=== PATIENT | male | born 1955 | race Caucasian/White ===

== ENCOUNTER 2022-07-06 04:09 | Day surgery (SDC) | payer BC ==
[2022-06-28 14:14] VITALS: BMI 36.0
[2022-07-06 07:59] VITALS: TEMP 97.7
[2022-07-06] MEDS ORDERED: FENTANYL CITRATE/PF 50 MCG/ML VIAL ONE (10:25)
[2022-07-06] MEDS ORDERED: MIDAZOLAM HCL 2 MG/2 ML SINGLE DOSE VIAL ONE (10:25)
[2022-07-06 12:27] VITALS: BP 135/80; PULSE 76; RESP 18
== END 2022-07-06 11:15 | disposition home or self-care (01) ==
LOC: JASU-SURG 04:09
PROVIDERS: ATTEND Urology
PROC: 0TF3XZZ Fragmentation in Right Kidney Pelvis, External Approach (ICD-10-PCS; principal; 2022-07-06 09:30)
DX: N20.0 Calculus of kidney (principal)

== ENCOUNTER 2023-04-21 04:25 | Day surgery (SDC) | payer BC ==
[2023-04-14 14:48] VITALS: BMI 34.3
[2023-04-21 13:15] VITALS: TEMP 98.6
[2023-04-21 13:39] VITALS: BP 122/52; PULSE 61; RESP 14
== END 2023-04-21 13:40 | disposition home or self-care (01) ==
LOC: JASU-ENDO 04:25
PROVIDERS: ATTEND Internal Medicine Gastroenterology
PROC: 0DJD8ZZ Inspection of Lower Intestinal Tract, Via Natural or Artificial Opening Endoscopic (ICD-10-PCS; principal; 2023-04-21 12:15)
DX: Z12.11 Encounter for screening for malignant neoplasm of colon (principal); K64.8 Other hemorrhoids

== ENCOUNTER 2023-04-26 05:33 | Day surgery (SDC) | payer BC ==
[2023-04-20 10:38] VITALS: BMI 34.3
[2023-04-26] MEDS ORDERED: LIDOCAINE VISCOUS 2% ORAL/TOP 15 ML UNIT-DOSE CUP ONE (12:47)
[2023-04-26 13:15] VITALS: TEMP 97
[2023-04-26 13:42] VITALS: RESP 15
[2023-04-26 13:48] VITALS: BP 127/60; PULSE 72
== END 2023-04-26 13:50 | disposition home or self-care (01) ==
LOC: JASU-ENDO 05:33
PROVIDERS: ATTEND Internal Medicine Gastroenterology
PROC: 0DB78ZX Excision of Stomach, Pylorus, Via Natural or Artificial Opening Endoscopic, Diagnostic (ICD-10-PCS; 2023-04-26)
PROC: 0DB68ZX Excision of Stomach, Via Natural or Artificial Opening Endoscopic, Diagnostic (ICD-10-PCS; principal; 2023-04-26 12:15)
DX: K44.9 Diaphragmatic hernia without obstruction or gangrene (principal); I10 Essential (primary) hypertension